=== PATIENT | male | born 2000 | race Caucasian/White ===

== ENCOUNTER 2024-08-14 17:37 | Emergency (ER) | payer BC, SELFPAY ==
[2024-08-14 17:38] VITALS: BP 153/98
--- NOTE | 2024-08-14 17:41 | ED.GENMED ---
ED Provider Triage
<Sundeep Anderson PA-C - Last Filed: 08/14/24 17:45>
-
Patient seen by provider in Triage?: Seen in Triage
Attestation: A medical screening examination has been initiated by a qualified medical provider. Based on the assessment performed at this time, it has been determined that an emergent medical condition may exist and the patient has been informed
that further medical evaluation and possible additional diagnostic testing may be needed.
HPI: 24-year-old male with past medical history of ulcerative colitis, controlled with CBD, has not had a flareup in at least 5 years presenting to the ER for evaluation after yesterday he started noticing a little bit of lower abdominal discomfort,
today during a bowel movement when wiping noticed blood and states that the blood continued. States pain is currently under control. Does not follow with GI for this. Had been on steroids and mesalamine back many years ago but stopped taking this
medication. Patient denies any fevers. Labs ordered.
GENERAL: Alert , in no apparent distress
EYE: No visual abnormalities.
NECK: Trachea midline
ENT: No visible abnormalities.
LUNGS: No acute respiratory distress
NEUROLOGICAL: Alert and oriented
SKIN: Skin intact. No visible changes.
MUSCULOSKELETAL: Moving extremities normally
PSYCH: Normal and appropriate interaction.
This is a medical evaluation conducted in person to initiate diagnostic evaluation and provide initial therapeutics. Please see further documentation by the treating clinician.
History of Present Illness
<Sundeep Anderson PA-C - Last Filed: 08/14/24 17:45>
General
Chief Complaint: Rectal Bleeding
Time Seen by Provider: 08/14/24 22:43
<Dashawn Burton MD - Last Filed: 08/15/24 15:09>
General
Source: patient and family
Exam Limitations: none
Nursing documentation reviewed up to this point in time: agreed with
History of Present Illness
History of Present Illness:
Patient with history of ulcerative colitis diagnosed in 2019, currently maintained on CBD oil, presents to ED secondary to brief episode of lower abdominal pain yesterday, along with 1 episode of bloody bowel movement this afternoon. Denies any
abdominal pain at this time. Denies fever or chills. Denies trauma. Denies dizziness or weakness. Patient states that he was not straining when he had bowel movement earlier this afternoon. It is only when he was wiping, he noted bright red
blood on the toilet. Since then, patient had additional small bowel movement, without any bleeding noted. Denies recent illness. Denies recent change in medications or diet.
Past History
<Sundeep Anderson PA-C - Last Filed: 08/14/24 17:45>
Past History
ED Past Medical History: Other (Ulcerative colitis)
ED Past Surgical History: Tonsilectomy (Adenoidectomy)
Social History
Tobacco: Non-smoker
Personal: Single
Living: with family
Employment: Employed ([employer])
Review of Systems
<Dashawn Burton MD - Last Filed: 08/15/24 15:09>
Review of Systems
Allergies reviewed?: Yes
All Other Systems: ROS reviewed and negative except as documented in HPI and ROS
Constitutional: Reports no symptoms
EENT: Reports no symptoms
Respiratory: Reports no symptoms
Cardiac: Reports no symptoms
ABD/GI: Reports bloody stools; Denies abdominal pain, nausea, vomiting or diarrhea
Musculoskeletal: Reports no symptoms
Skin: Reports no symptoms
Neurological: Reports no symptoms
Phy Exam
<Dashawn Burton MD - Last Filed: 08/15/24 15:09>
Physical Exam
Physical Exam:
Physical Exam
General: no apparent distress, not acutely ill. afebrile
Head: nc/at. eomi
Neck: supple. no meningeal signs.
Heart: s1/s2 regular rate and rhythm, no murmur. equal radial pulses.
Lungs: no acute respiratory distress. clear bilaterally
Abdomen: normal bowel sounds. not tender.
Neuro: alert and oriented. no focal neurological deficits
Skin: no rash
Psychiatric: well kept. interactive and cooperative
Extremities: no edema. no calf tenderness.
Course
<Sundeep Anderson PA-C - Last Filed: 08/14/24 17:45>
Orders/Labs/Results
Orders:
Orders
08/14/24 17:55
CRP [C-Reactive Protein] Urgent
Complete Blood Count/With Diff Urgent
Comprehensive Metabolic Panel Urgent
ESR [Erythrocyte Sed Rate] Urgent
Lipase Urgent
Abnormal Lab Results
08/14/24
17:55
RBC 4.50 L 10^6/uL
(4.70-6.10)
Hct 38.5 L %
(39.0-52.0)
Absolute Monos (auto) 0.7 H 10^3/uL
(0.1-0.6)
BUN 28 H mg/dl
(9-20)
Creatinine 1.6 H mg/dL
(0.7-1.3)
C-Reactive Protein 11.30 H mg/L
(0.0-10.00)
08/14/24 17:55
08/14/24 17:55
Vital Signs
Initial and Last Documented VS:
Initial Vital Signs
Temp Pulse Resp BP Pulse Ox
97.8 F 72 16 153/98 98
08/14/24 17:38 08/14/24 17:38 08/14/24 17:38 08/14/24 17:38 08/14/24 17:38
Last Documented Vital Signs
Temp Pulse Resp BP Pulse Ox
97.8 F 72 16 119/78 98
08/14/24 17:38 08/14/24 17:38 08/14/24 17:38 08/14/24 23:00 08/14/24 23:00
<Dashawn Burton MD - Last Filed: 08/15/24 15:09>
Orders/Labs/Results
Orders:
Orders
08/14/24 17:55
CRP [C-Reactive Protein] Urgent
Complete Blood Count/With Diff Urgent
Comprehensive Metabolic Panel Urgent
ESR [Erythrocyte Sed Rate] Urgent
Lipase Urgent
Abnormal Lab Results
08/14/24
17:55
RBC 4.50 L 10^6/uL
(4.70-6.10)
Hct 38.5 L %
(39.0-52.0)
Absolute Monos (auto) 0.7 H 10^3/uL
(0.1-0.6)
BUN 28 H mg/dl
(9-20)
Creatinine 1.6 H mg/dL
(0.7-1.3)
C-Reactive Protein 11.30 H mg/L
(0.0-10.00)
08/14/24 17:55
08/14/24 17:55
Vital Signs
Initial and Last Documented VS:
Initial Vital Signs
Temp Pulse Resp BP Pulse Ox
97.8 F 72 16 153/98 98
08/14/24 17:38 08/14/24 17:38 08/14/24 17:38 08/14/24 17:38 08/14/24 17:38
Last Documented Vital Signs
Temp Pulse Resp BP Pulse Ox
97.8 F 72 16 119/78 98
08/14/24 17:38 08/14/24 17:38 08/14/24 17:38 08/14/24 23:00 08/14/24 23:00
<Dashawn Burton MD - Last Filed: 08/15/24 15:09>
MDM/Problems Addressed
MDM/Problems Addressed:
H&H stable. Patient otherwise remains hemodynamically stable without any acute distress. In light of the fact that patient's abdominal exam is benign with subsequent normal bowel movement without blood, I believe patient is safe to be discharged
home with referral to GI for an outpatient follow-up. Return precautions provided to patient and his mother.
<Dashawn Burton MD - Last Filed: 08/15/24 15:09>
*Critical Care Note
Total Time (30-74mins, 75-104mins- exclusive of procedures): Not Applicable
ED Attending Note
<Sundeep Anderson PA-C - Last Filed: 08/14/24 17:45>
-
Portions of this chart may have been created with voice recognition software.� Occasional wrong word or��sound alike� substitutions may have occurred due to the inherent limitations of voice recognition software.
Discharge Plan
Departure
Patient Disposition: Home (Routine Discharge)
Date of Disposition: 08/14/24
Time of Disposition: 23:17
Patient with high blood pressure during this ER visit?: Yes
Condition: Good
Discharge Problem:
Rectal bleed
Instructions: Bloody Stools, Adult (DC)
Prescriptions:
No Action
nitrofurantoin monohyd/m-cryst 100 MG capsule
100 mg PO BID Qty: 20 0RF
Referrals:
Lucas Mcpherson MD [Family Provider] -
Roxie Lao DO [Active] -
Activity Restrictions/Additional Instructions:
As discussed, please follow-up with your primary care physician and/or referred to GI physician for further evaluation and treatment. Please consider return to ED with worsening symptoms.
Interventions
Interventions:
*Risk Screen - Suicide Last Done: 08/14/24 17:38
*General Assessment Last Done: 08/14/24 22:23
*Neglect/Abuse Screening Last Done: 08/14/24 17:38
ED- Fall Risk Assessment Last Done: 08/14/24 23:25
*ED COVID-19 Vaccine History Last Done: 08/14/24 22:23
*Nursing Disposition Last Done: 08/14/24 23:25
VB-Cqiouw-Mzzvzcxgnn Assessment Last Done: 08/14/24 22:23
ED- Cardiac Assessment Last Done: 08/14/24 22:23
ED- Pulmonary Assessment Last Done: 08/14/24 22:23
Discharge Date and Time
Discharge Date/Time: 08/14/24 23:27
Print Language: [id number]
[2024-08-14 18:01] LABS: % Basophils 0.6 % (0-2); % Eosinophils 3.1 % (0-6); % Immature Granulocytes 0.3 % (0-0.5); % Lymphocytes 30.4 % (20.5-51.1); % Monocytes 8.5 % (1.7-9.3); % Neutrophils 57.1 % (42.2-75.2); Absolute Basophils 0.1 10^3/uL (0-0.2); Absolute Eosinophils 0.2 10^3/uL (0-0.7); Absolute Lymphocytes 2.4 10^3/uL (1.2-3.4); Absolute Monocytes 0.7 10^3/uL (0.1-0.6); Absolute Neutrophils 4.4 10^3/uL (1.4-6.5); Hematocrit 38.5 % (39.0-52.0); Hemoglobin 13.5 g/dL (13.0-18.0); Mean Corp Hgb Conc. 35.1 g/dL (33.0-37.0); Mean Corpuscular Volume 85.6 fL (80.0-94.0); Mean Platelet Volume 8.9 fL (7.4-10.4); Nucleated Red Blood Cells % 0 % (-); Platelet Count 262 10^3/uL (130-400); Red Cell Dist. Width 12.4 % (11.5-14.5); White Blood Cell Count 7.7 10^3/uL (4.8-10.8)
[2024-08-14 18:08] LABS: Erythrocyte Sed Rate 18 mm/hour (0-20)
[2024-08-14 18:33] LABS: ALT (SGPT) 19 U/L (0-50); AST (SGOT) 33 U/L (17-59); Albumin 4.5 g/dl (3.5-5.0); Alkaline Phosphatase 71 U/L (38-126); Blood Urea Nitrogen 28 mg/dl (9-20); Calcium 9.1 mg/dl (8.4-10.2); Carbon Dioxide 25 mmol/L (22-30); Chloride 103 mmol/L (98-107); Glucose 88 mg/dl (70-99); Lipase 185 U/L (23-300); Potassium 4.3 mmol/L (3.5-5.1); Sodium 139 mmol/L (135-145); Total Bilirubin 0.8 mg/dl (0.2-1.3); Total Protein 7.8 g/dl (6.3-8.2); eGFR > 60.00
[2024-08-14 22:25] VITALS: BP 137/92
[2024-08-14 23:00] VITALS: BP 119/78
== END 2024-08-14 23:27 | disposition home or self-care (01) ==
LOC: EMR 17:37
PROVIDERS: Physician Assistant Medical; EMERGENCY PHYSICIAN Emergency Medicine; FAMILY PHYSICIAN Family Medicine
DX: K62.5 Hemorrhage of anus and rectum (principal); R10.30 Lower abdominal pain, unspecified; R19.7 Diarrhea, unspecified; R03.0 Elevated blood-pressure reading, without diagnosis of hypertension; K51.911 Ulcerative colitis, unspecified with rectal bleeding
CPT/HCPCS: 99283; 80053; 83690; 85025; 85652; 86140